=== PATIENT | male | born 1975 | race Caucasian/White ===

== ENCOUNTER 2020-05-25 16:39 | Emergency (ER) | payer OTHER ==
[2015-12-30 20:42] VITALS: BP 133/77
== END 2020-05-25 16:54 | disposition left against medical advice (07) ==
LOC: ER 16:39
DX: L08.9 Local infection of the skin and subcutaneous tissue, unspecified (principal); Z53.21 Procedure and treatment not carried out due to patient leaving prior to being seen by health care provider